=== PATIENT | male | born 1985 | race Caucasian/White ===

== ENCOUNTER 2020-02-25 07:22 | Day surgery (SDC) | payer BC, OTHER ==
[2020-02-22 08:33] VITALS: BMI 33.1
[~2020-02-25 07:22] MED LIST: LACTATED RINGERS 1,000 ML IV SCH
[2020-02-25 07:50] VITALS: RESP 16; TEMP 97
[2020-02-25] MEDS ORDERED: LIDOCAINE 1% (10MG/ML) FOR IV START INTRADERMA ONE (07:56)
[2020-02-25] MEDS ORDERED: LIDOCAINE 1% INJ 10MG/ML (20 ML MDV) ONE (08:16)
[2020-02-25] MEDS ORDERED: PROPOFOL 10 MG/ML 20 ML VIAL IV ONE (08:16)
--- NOTE | 2020-02-25 08:39 | P.PCN ---
Date of Procedure: 02/25/20 Description of Procedure: BRIEF HISTORY: Patient is a 34-year-old male presenting for evaluation of abdominal distention and abnormal laboratory test results for EGD. The patient has possible celiac sprue with reports of bloating, gas and distention. ALLERGY testing was positive for gliadin antibody. He also reports some loose bowel movements and urgency. PROCEDURE PERFORMED: Esophagogastroduodenoscopy with biopsy. PREOPERATIVE DIAGNOSIS: Abdominal distention, abnormal laboratory testing, rule out celiac sprue, bloating, diarrhea. ESTIMATED BLOOD LOSS: Minimal. IV sedation per anesthesia. PROCEDURE: After informed consent was obtained, the patient was brought into the endoscopy unit. IV sedation was administered by Anesthesia under continuous monitoring. Initially the Olympus GIF-190 video endoscope was inserted into the mouth. Esophagus intubated without any difficulty. It was gradually advanced into the stomach and duodenum and carefully examined. The bulb and the second part of the duodenum appeared normal, with multiple biopsies taken in the bulb and second part of the duodenum, there was some mild scattered erythema suggestive of mild duodenitis. The scope at this time was withdrawn to the stomach, adequately insufflated with air, and upon careful examination, mucosa of the antrum, body, cardia and the fundus appeared normal, except for some mild scattered erythema in the antrum and body suggestive of gastritis with biopsies taken. The scope was then withdrawn into the esophagus. The GE junction was located at 42 cm from the incisors and biopsies. The esophagus appeared normal. There were no erosions or ulcerations seen and the patient tolerated the procedure well. IMPRESSION: 1. Mild gastritis. 2. Mild duodenitis. 3. Biopsies taken of the duodenum, antrum and body and GE junction. RECOMMENDATIONS: The findings of this examination were discussed with the patient and his children mother. Okay to resume diet. Okay to resume medications. Await pathology from biopsies. Follow up in GI clinic as scheduled for the results of the biopsies.
[2020-02-25 09:00] VITALS: BP 130/61; PULSE 73
== END 2020-02-25 09:10 | disposition home or self-care (01) ==
LOC: ORWHC2ENDO 07:22
PROVIDERS: ATTEND Internal Medicine
DX: K29.50 Unspecified chronic gastritis without bleeding (principal); K22.8 Other specified diseases of esophagus; K29.80 Duodenitis without bleeding; R79.9 Abnormal finding of blood chemistry, unspecified; R19.7 Diarrhea, unspecified; R15.2 Fecal urgency; G47.33 Obstructive sleep apnea (adult) (pediatric); F17.210 Nicotine dependence, cigarettes, uncomplicated; E66.01 Morbid (severe) obesity due to excess calories; Z98.890 Other specified postprocedural states; Z68.34 Body mass index [BMI] 34.0-34.9, adult
CPT/HCPCS: 88305; 43239; J2001; J2704

== ENCOUNTER → 2020-04-07 | Outpatient (CLI) | payer OTHER | END | disposition home or self-care (01) | LOC: LABWHC1 16:37 | PROVIDERS: ATTEND Internal Medicine | DX: R19.4 Change in bowel habit (principal) | CPT/HCPCS: 36415; 82656; 83993; 87045; 87046; 87328; 87329 ==

== ENCOUNTER 2020-05-19 08:24 | Day surgery (SDC) | payer OTHER ==
[2020-05-14 14:00] VITALS: BMI 33.3
[~2020-05-19 08:24] MED LIST changes: +LIDOCAINE 1% (10MG/ML) FOR IV START INTRADERMA PRN
[2020-05-19 08:43] VITALS: RESP 16; TEMP 97.5
[2020-05-19] MEDS ORDERED: fentaNYL (PF) 50 MCG/ML 2 ML AMP ONE (09:28)
[2020-05-19] MEDS ORDERED: KETAMINE 10 MG/ML 20 ML VIAL ONE (09:28)
[2020-05-19] MEDS ORDERED: MIDAZOLAM 2 MG/2 ML VIAL ONE (09:28)
[2020-05-19] MEDS ORDERED: PROPOFOL 10 MG/ML 20 ML VIAL IV ONE (09:28)
[2020-05-19] MEDS ORDERED: LIDOCAINE 1% INJ 10MG/ML (20 ML MDV) ONE (09:28)
--- NOTE | 2020-05-19 10:09 | P.PCN ---
Date of Procedure: 05/19/20 Description of Procedure: Brief history: 34-year-old male presenting for EGD and colonoscopy for evaluation of symptoms of abdominal bloating and distention and change in bowel habits. The patient has been having symptoms of abdominal gas, bloating and distention and diarrhea which present for months. He previously tried to abstain from use of wheat products as prior testing was positive for antibody to clear then but negative for antibody to tissue transglutaminase. Biopsies on prior EGD negative for evidence of villous blunting. Currently he is eating wheat products however, and has been unable to stick to a FODMAP diet as he feels it was fairly restricted. Procedure performed: Esophagogastroduodenoscopy with biopsy Colonoscopy with biopsy Estimated blood loss: Minimal. Preoperative diagnosis: Abdominal distention, bloating, change in bowel habits, diarrhea Anesthesia: MAC Procedure: After informed consent was obtained from the patient was brought into the endoscopy unit and IV sedation was administered by anesthesia under continuous monitoring. Initially upper endoscopy was done. The Olympus GF 190 video endoscope was inserted into the mouth and esophagus intubated without any difficulty and was gradually advanced into the stomach and duodenum and ca refully examined. The bulb and second part of the duodenum appeared normal, except for some mild erythema in the bulb suggestive of mild duodenitis with biopsies taken. The scope was then withdrawn into the stomach adequately insufflated with air and upon careful examination the antrum and body, cardia and fundus appeared normal, except for some mild punctate erythema suggestive of mild gastritis of the antrum and body with biopsies taken. The scope was then withdrawn into the esophagus. The GE junction was located at 42 cm to the incisors. It appeared regular with no erythema erosions or ulcerations. Rest of the esophagus appeared normal. Patient tolerated the procedure well. At this time the patient continued to remain sedation. Initial digital rectal examination was normal. Olympus CF 190 video colonoscope was then inserted into the rectum and gradually advanced to the cecum without any difficulty. Careful examination was performed as the scope was gradually being withdrawn. The prep was excellent. The cecum, ascending colon, transverse colon, descending colon, sigmoid colon and rectum appeared normal, with random biopsies taken of a normal-appearing right and left colon as well as a normal-appearing terminal ileum due to diarrhea and altered bowel function. Retroflexion was performed in the rectum and no lesions were noted. Patient tolerated the procedure well. Impression: 1. Mild gastritis. Mild duodenitis. Biopsies of the duodenum, antrum and body. 2. Normal-appearing colon from rectum to cecum with normal-appearing terminal ileum with random biopsies taken of the right colon, left colon and terminal ileum. Recommendations: Findings of this examination were discussed with the patient. Okay to resume diet. Okay to resume medications. Await pathology from biopsies. Follow up in GI clinic as previously scheduled for continued treatment and results of biopsies.
[2020-05-19 10:27] VITALS: BP 118/76; PULSE 73
== END 2020-05-19 10:44 | disposition home or self-care (01) ==
LOC: ORWHC2ENDO 08:24
PROVIDERS: ATTEND Internal Medicine
DX: R19.4 Change in bowel habit (principal); R19.7 Diarrhea, unspecified; K29.70 Gastritis, unspecified, without bleeding; K29.80 Duodenitis without bleeding; K31.89 Other diseases of stomach and duodenum; G47.33 Obstructive sleep apnea (adult) (pediatric); Z79.899 Other long term (current) drug therapy; Z98.890 Other specified postprocedural states; Z86.711 Personal history of pulmonary embolism; Z99.89 Dependence on other enabling machines and devices; Z87.891 Personal history of nicotine dependence
CPT/HCPCS: 88305; 45380; 43239; J2250; J2001; J3010; J2704